=== PATIENT | female | born 1955 | race Caucasian/White ===

== ENCOUNTER → 2023-05-22 07:40 | Outpatient (REF) | payer MEDICARE, BC, SELFPAY | LOC: EMG 07:40 | PROVIDERS: ATTENDING PHYSICIAN Orthopaedic Surgery; FAMILY PHYSICIAN Internal Medicine | DX: R20.0 Anesthesia of skin (principal); G56.02 Carpal tunnel syndrome, left upper limb | CPT/HCPCS: 95886; 95910 ==

== ENCOUNTER → 2023-06-02 06:47 | Outpatient (REF) | payer MEDICARE, BC, SELFPAY | LOC: PAVMRI 06:47 | PROVIDERS: ATTENDING PHYSICIAN Orthopaedic Surgery; FAMILY PHYSICIAN Internal Medicine | DX: M25.532 Pain in left wrist (principal) | CPT/HCPCS: 73221 ==

== ENCOUNTER → 2023-09-23 08:14 | Outpatient (REF) | payer MEDICARE, BC, SELFPAY | LOC: HWWDC 08:14 | PROVIDERS: ATTENDING PHYSICIAN Internal Medicine | DX: Z12.31 Encounter for screening mammogram for malignant neoplasm of breast (principal) | CPT/HCPCS: 77063; 77067 ==

== ENCOUNTER → 2024-02-02 06:20 | Day surgery (SDC) | payer MEDICARE, BC, SELFPAY | LOC: GI 06:20 | PROVIDERS: ATTENDING PHYSICIAN Specialist | DX: Z12.11 Encounter for screening for malignant neoplasm of colon (principal); K64.8 Other hemorrhoids; K57.30 Diverticulosis of large intestine without perforation or abscess without bleeding; R11.0 Nausea; K31.7 Polyp of stomach and duodenum; K29.50 Unspecified chronic gastritis without bleeding; K31.89 Other diseases of stomach and duodenum; K21.00 Gastro-esophageal reflux disease with esophagitis, without bleeding; Z86.0101 Personal history of adenomatous and serrated colon polyps | CPT/HCPCS: 43239; G0105; 88305; 88342 ==

== ENCOUNTER → 2024-03-09 10:09 | Outpatient (REF) | payer MEDICARE, BC, SELFPAY | LOC: RAD 10:09 | PROVIDERS: ATTENDING PHYSICIAN Internal Medicine | DX: M81.0 Age-related osteoporosis without current pathological fracture (principal) | CPT/HCPCS: 77080 ==

== ENCOUNTER → 2024-03-23 07:05 | Outpatient (REF) | payer MEDICARE, BC, SELFPAY | LOC: PAVMRI 07:05 | PROVIDERS: ATTENDING PHYSICIAN Orthopaedic Surgery; FAMILY PHYSICIAN Internal Medicine | DX: M25.561 Pain in right knee (principal) | CPT/HCPCS: 73721 ==

== ENCOUNTER → 2024-09-02 09:28 | Outpatient (REF) | payer MEDICARE, BC, SELFPAY | LOC: HWRAD 09:28 | PROVIDERS: ATTENDING PHYSICIAN Internal Medicine | DX: E78.5 Hyperlipidemia, unspecified (principal) | CPT/HCPCS: 75571 ==